=== PATIENT | female | born 1960 | race Caucasian/White ===

== ENCOUNTER 2017-01-17 15:08 | Emergency (ER) | payer BC, OTHER ==
[2017-01-17 15:32] VITALS: TEMP 97.8; BMI 33.6
--- NOTE | 2017-01-17 16:13 | PDOC ---
History of Present Illness <Paula Moody - Last Filed: 01/17/17 18:09> - General History Source: Patient Exam Limitations: No Limitations <Milana Rodriguez - Last Filed: 01/17/17 18:30> - General Chief Complaint: Syncope/Near Syncope Stated Complaint: SYNCOPE Time Seen by Provider: 01/17/17 15:45 - History of Present Illness Initial Comments: 01/17/17 16:15 Patient is a 56 year old female with significant medical hx of HTN who is presenting to the ED after multiple syncopal episodes since undergoing a tooth extraction procedure this morning. This morning the patient had an upper left sided molar tooth extracted and was put under conscious sedation. After the patient was taken home, she took a tylenol with codeine and went to sleep. When the patient woke up she went to drink some water and change the gauze in her mouth. She reports having a sudden onset of lightheadedness and dizziness, and passed out in her hallway, hitting her head. The patient woke up for a brief period and fainted a second time. When she awoke after her second episode, she was was surrounded by firemen. Patient states that the engineering scientist took her blood pressure, which was initially read systolic pressure in the 160s, but dropped to the 100s after the patient was sat upwards. The patient has used narcotics in the past for an orthopedic injury and denies having a syncopal reaction. Patient denies lower extremity pain, lower extremity swelling, chest pain, palpitations, shortness of breath, diaphoresis, weakness, seizure activity, incontinence, hx of taking blood thinners, or hx of blood clots. Patient endorses recent air travel to [place], [place] and [place]. PMD: Constantino Nieves MD Allergies: morphine (Fransisco,Paula) Past History <Paula Moody - Last Filed: 01/17/17 18:09> - Past Medical History HTN: Yes Thyroid Disease: Yes - Surgical History Abdominal Surgery: Yes (DIVERTICULITIS, COLON RESECTION) - Immunization History Td Vaccination: No TDAP Vaccination: No Immunization Up to Date: Yes - Psycho/Social/Smoking Cessation Hx Anxiety: No Suicidal Ideation: No Smoking Status: No Smoking History: Never smoked Have you smoked in the past 12 months: No Number of Cigarettes Smoked Daily: 0 Information on smoking cessation initiated: No Hx Alcohol Use: No Drug/Substance Use Hx: No Substance Use Type: Alcohol <Milana Rodriguez - Last Filed: 01/17/17 18:30> - Past Medical History Allergies/Adverse Reactions: Allergies Allergy/AdvReac Type Severity Reaction Status Date / Time morphine AdvReac Itching Verified 01/17/17 15:24 Home Medications: Ambulatory Orders Atenolol 100 mg PO DAILY 10/26/11 Levothyroxine [Synthroid -] 175 mcg PO DAILY 01/17/17 Losartan Potassium 100 mg PO DAILY 01/17/17 Comment:: 01/17/17 16:01 HTN (Milana Rodriguez) Cardiac Specific PMH - Complaint Specific PMHX Angina: No Cardiac Arrhythmia: No Cardiac Stent: No Myocardial Infarction: No Pacemaker: No Pulmonary Embolus: No <Milana Rodriguez - Last Filed: 01/17/17 18:30> Review of Systems <Paula Moody - Last Filed: 01/17/17 18:09> - Review of Systems Is the patient limited Bahamian proficient: No Constitutional: No: Chills, Diaphoresis HEENTM: Yes: Mouth Pain. No: Hearing Loss, Throat Pain, Throat Swelling Respiratory: No: Cough, Orthopnea, Shortness of Breath, SOB with Exertion Cardiac (ROS): No: Chest Pain, Edema, Irregular Heart Rate ABD/GI: No: Abdominal Distended Musculoskeletal: No: Back Pain Integumentary: Yes: Bruising, Other (hematoma right scalp forehead) Neurological: No: See HPI All Other Systems: Reviewed and Negative <Milana Rodriguez - Last Filed: 01/17/17 18:30> - Review of Systems Comments:: 01/17/17 16:26 CONSTITUTIONAL: Absent: fever, chills, diaphoresis, generalized weakness, malaise, loss of appetite HEENT: Absent: rhinorrhea, nasal congestion, throat pain, throat swelling, difficulty swallowing, mouth swelling, ear pain, eye pain, visual changes CARDIOVASCULAR: Present: syncope, lightheadedness Absent: chest pain, palpitations, irregular heart rate, peripheral edema RESPIRATORY: Absent: cough, shortness of breath, dyspnea with exertion, orthopnea, wheezing, stridor, hemoptysis GASTROINTESTINAL: Absent: abdominal pain, abdominal distension, nausea, vomiting, diarrhea, constipation, melena, hematochezia GENITOURINARY: Absent: dysuria, frequency, urgency, hesitancy, hematuria, flank pain, genital pain MUSCULOSKELETAL: Absent: myalgia, arthralgia, joint swelling SKIN: Absent: rash, itching, pallor HEMATOLOGIC/IMMUNOLOGIC: Absent: easy bleeding, easy bruising, lymphadenopathy, frequent infections ENDOCRINE: Absent: unexplained weight gain, unexplained weight loss, heat intolerance, cold intolerance NEUROLOGIC: Present: dizziness Absent: headache, focal weakness or paresthesia, unsteady gait, seizure, mental status changes, bladder or bowel incontinence. PSYCHIATRIC: Absent: anxiety, depression, suicidal or homicidal ideation, hallucinations (FransiscoPaula) *Physical Exam <FransiscoPaula - Last Filed: 01/17/17 18:09> - Physical Exam HEENT: positive: KAVITA, Normal ENT Inspection Neck: positive: Tender lateral. negative: Tender midline Respiratory/Chest: positive: Lungs Clear, Normal Breath Sounds. negative: Chest Tender Cardiovascular: positive: Regular Rhythm, Regular Rate Vascular Pulses: Dorsalis-Pedis (R): 2+, Doralis-Pedis (L): 2+ Gastrointestinal/Abdominal: positive: Normal Bowel Sounds. negative: Tender Integumentary: positive: Normal Color, Dry, Warm, Other (hematoma right forehead ) Neurologic: positive: content administrator II-XII NML intact, Fully Oriented, Alert, Motor Strength 5/5 <Milana Rodriguez - Last Filed: 01/17/17 18:30> - Vital Signs Last Vital Signs Temp Pulse Resp BP Pulse Ox 97.8 F 68 17 154/81 99 01/17/17 15:25 01/17/17 15:25 01/17/17 15:25 01/17/17 15:25 01/17/17 15:25 - Physical Exam Comments: 01/17/17 16:27 GENERAL: Obese. Awake and alert. No acute distress. HEENT: Normocephalic. Right forehead hematoma. PERRLA, EOMI. No conjunctival pallor. Sclera are non-icteric. Moist mucous membranes. Oropharynx is clear. NECK: Supple. Full ROM. No JVD. Carotid pulses 2+ and symmetric, without bruits. No thyromegaly. No lymphadenopathy. CARDIOVASCULAR: Regular rate and rhythm. No murmurs, rubs, or gallops. Distal pulses are 2+ and symmetric. PULMONARY: No evidence of respiratory distress. Lungs clear to auscultation bilaterally. No wheezing, rales or rhonchi. ABDOMINAL: Soft. Non-tender. Non-distended. No rebound or guarding. No organomegaly. Normoactive bowel sounds. MUSCULOSKELETAL: Paraspinal cervical tenderness but no midline bony tenderness. Normal range of motion at all joints. No CVA tenderness. EXTREMITIES: No cyanosis. No clubbing. No edema. No calf tenderness. SKIN: Warm and dry. Normal capillary refill. No rashes. No jaundice. NEUROLOGICAL: Alert, awake, appropriate. Cranial nerves 2-12 intact. 5/5 motor strength all four extremities. Normal speech. PSYCHIATRIC: Cooperative. Good eye contact. Appropriate mood and affect. (Paula Moody) Heart Score/ECG Review <Paula Moody - Last Filed: 01/17/17 18:09> - ECG Intrepretation Rhythm: Regular Rhythm <Milana Rodriguez - Last Filed: 01/17/17 18:30> - ECG Intrepretation Comment:: 01/17/17 16:04 rate 70 bpm, NSR, no st elevation or depression Pr 192 (Milana Rodriguez) ED Treatment Course - LABORATORY CBC & Chemistry Diagram: 01/17/17 16:36 01/17/17 16:36 <Paula Moody - Last Filed: 01/17/17 18:09> - LABORATORY CBC & Chemistry Diagram: 01/17/17 16:36 01/17/17 16:36 <Milana Rodriguez - Last Filed: 01/17/17 18:30> - ADDITIONAL ORDERS Additional order review: Laboratory Results 01/17/17 01/17/17 16:36 16:36 INR 1.05 D-Dimer 202 Sodium 140 Potassium 4.6 Chloride 104 Carbon Dioxide 27 Anion Gap 9 BUN 11 Creatinine 0.6 Creat Clearance w eGFR > 60 Random Glucose 124 H D Calcium 9.1 Total Bilirubin 1.1 H D AST 23 D ALT 37 D Alkaline Phosphatase 72 D Troponin I 0.02 Total Protein 7.4 Albumin 3.4 01/17/17 16:36 RBC 4.34 MCV 90.6 MCHC 33.9 RDW 12.7 D MPV 8.7 Neutrophils % 73.6 Lymphocytes % 14.4 D Monocytes % 8.7 Eosinophils % 2.5 Basophils % 0.8 - RADIOLOGY Radiology Studies Ordered: Category Date Time Status HEAD CT WITHOUT CONTRAST [CT] Stat CT Scan 01/17/17 17:07 Completed Radiograph Interpretation: 01/17/17 18:[address] Impression: No CT evidence of acute intracranial pathology. Reported By: Artie Mendoza MD (Paula Moody) - Medications Given in the ED: ED Medications Discontinued Medications Generic Name Dose Route Start Last Admin Trade Name Freq PRN Reason Stop Dose Admin Sodium Chloride 1,000 ml 01/17/17 16:17 01/17/17 16:29 Normal Saline - IV 01/17/17 16:18 1,000 ml ONCE ONE Administration Medical Decision Making <Paula Moody - Last Filed: 01/17/17 18:09> <Milana Rodriguez - Last Filed: 01/17/17 18:30> - Medical Decision Making 01/17/17 16:05 56 yo F with h/o HTN here s/p molar extraction this am, was given versed, fentanyl, and amoxicillin. dc on tylenol #3. at home went to bed, on awakening , went to bathroom to change guaze, and felt lightheaded , dizzy, with secondary LOC. awoke in hallway floor, had dialed phone so someone was talking to her in the phone. then she passed out again. awoke to EMS in hallway , on arrival was normotensive, but became hypotensive on sitting and standing. denies palpitations. no prior syncope. no leg swelling. no leg pain. no h;/o pe or dvt. on exam awake alert. small hematoma right forehead. nuerologically 5/5 DDgx: dysthymia, orthostatic, medication side effect. vagal. traumatic head injuryk. plan ct head, cxr ekg tele cbc lytes iv hydration reassess. herbie if workup negative will be able to dc home. (Milana Rodriguez) *DC/Admit/Observation/Transfer <Paula Moody - Last Filed: 01/17/17 18:09> - Discharge Dispostion Admit: No <Milana Rodriguez - Last Filed: 01/17/17 18:30> Diagnosis at time of Disposition: Syncope - Discharge Dispostion Disposition: HOME Condition at time of disposition: Good - Referrals Referrals: Constantino Nieves MD [Primary Care Provider] - - Patient Instructions Additional Instructions: drink plenty of fluids. follow up with your primary doctor. dr. Nieves. return for any chest pain. shortness of breath or any concerns. drink plenty of fluids - Attestations Scribe Attestion: 01/17/17 16:29 Documentation prepared by Paula Moody, acting as medical physics researcher for Milana Rodriguez MD. (Paula Moody)
[2017-01-17] MEDS ORDERED: SODIUM CHLORIDE 0.9% 1000 ML INFUS.BAG IV ONE (16:17)
[2017-01-17 17:10] LABS: BASOPHIL 0.8 % (0-2.0); EOSINOPHIL 2.5 % (0-4.5); MCH 30.7 pg (25.7-33.7); MCHC 33.9 g/dl (32.0-36.0); MEAN CELL VOLUME 90.6 fl (80-96); MEAN PLT VOLUME 8.7 fl (7.5-11.1); NEUTROPHILS 73.6 % (42.8-82.8); PLATELET COUNT 251 K/MM3 (134-434); RDW 12.7 % (11.6-15.6); WHITE BLOOD COUNT 8.1 K/mm3 (4.0-10.0)
[2017-01-17 17:29] LABS: INR 1.05 (0.82-1.09); PROTHROMBIN TIME (PATIENT) 11.6 SEC (9.98-11.88)
[2017-01-17 17:37] LABS: ALBUMIN 3.4 g/dl (3.4-5.0); ANION GAP 9 (8-16); BILIRUBIN,TOTAL 1.1 mg/dL (0.2-1.0); CALCIUM 9.1 mg/dL (8.5-10.1); CO2 27 mmol/L (21-32); CREATININE 0.6 mg/dL (0.55-1.02); GLUCOSE,RANDOM 124 mg/dL (74-106); SGOT/AST 23 U/L (15-37); SGPT/ALT 37 U/L (12-78); TOT PROT 7.4 g/dl (6.4-8.2)
[2017-01-17 17:40] LABS: ALK PHOS 72 U/L (45-117); TROPONIN I 0.02 ng/ml (0.00-0.05)
[2017-01-17 19:10] VITALS: BP 145/68; PULSE 72
--- NOTE | 2017-01-18 10:57 | EKG ---
Test Reason : Blood Pressure : / mmHG Vent. Rate : 070 BPM Atrial Rate : 070 BPM P-R Int : 192 ms QRS Dur : 088 ms QT Int : 448 ms P-R-T Axes : 047 -07 048 degrees QTc Int : 483 ms NORMAL SINUS RHYTHM MODERATE VOLTAGE CRITERIA FOR LVH, MAY BE NORMAL VARIANT PROLONGED QT ABNORMAL ECG WHEN COMPARED WITH ECG OF 26-OCT-2011 12:55, NO SIGNIFICANT CHANGE WAS FOUND Confirmed by DELMY LLANOS MD ([id number]) on 01/18/2017 10:56:30 AM Referred By: Confirmed By:DELMY LLANOS MD
== END 2017-01-17 19:09 | disposition home or self-care (01) ==
LOC: JER 15:08
DX: R55 Syncope and collapse (principal); I95.1 Orthostatic hypotension; K08.109 Complete loss of teeth, unspecified cause, unspecified class; I10 Essential (primary) hypertension; E03.9 Hypothyroidism, unspecified
CPT/HCPCS: 36415; 70450-TC; 80053; 84484; 85025; 85379; 85610; 93005; 93010; 99285-25

== ENCOUNTER 2017-06-10 10:00 | Day surgery (SDC) | payer BC, OTHER ==
[2017-06-07 16:23] VITALS: BMI 40.7
--- NOTE | 2017-06-10 15:37 | HP ---
Past Medical History - Primary Care Physician PCP:: Alonzo Grissom - Admission Chief Complaint: postmenopausal vaginal bleeding, fibroid uterus History of Present Illness: 57 yo f with hx of PMB admitted for hysteroscopy D&C , procedure rba discussed History Source: Patient Limitations to Obtaining History: No Limitations - Past Medical History Cardiovascular: Yes: HTN, Hyperlipdemia Endocrine: Yes: Hypothyroidism - Past Surgical History Hx Myomectomy: No Hx Transabdominal Cerclage: No - Smoking History Smoking history: Never smoked Have you smoked in the past 12 months: No Aproximately how many cigarettes per day: 0 - Alcohol/Substance Use Hx Alcohol Use: No Home Medications - Allergies Allergies/Adverse Reactions: Allergies Allergy/AdvReac Type Severity Reaction Status Date / Time morphine AdvReac Itching Verified 06/07/17 16:05 NUTS Allergy Uncoded 06/10/17 13:25 - Home Medications Home Medications: Ambulatory Orders Atenolol 100 mg PO DAILY 10/26/11 Levothyroxine [Synthroid -] 175 mcg PO DAILY 01/17/17 Losartan Potassium 100 mg PO DAILY 01/17/17 Aspirin [Ecotrin] 81 mg PO DAILY 06/07/17 Review of Systems - Review of Systems Constitutional: reports: No Symptoms, Malaise Eyes: reports: No Symptoms HENT: reports: No Symptoms Neck: reports: No Symptoms Cardiovascular: reports: No Symptoms Respiratory: reports: No Symptoms Gastrointestinal: reports: No Symptoms Genitourinary: reports: Vaginal Bleeding Breasts: reports: No Symptoms Reported Musculoskeletal: reports: No Symptoms Integumentary: reports: No Symptoms Neurological: reports: No Symptoms Endocrine: reports: No Symptoms Hematology/Lymphatic: reports: No Symptoms Psychiatric: reports: No Symptoms 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 No: Severe Distress Eyes: Yes: WNL, Conjunctiva Clear, EOM Intact HENT: Yes: WNL, Atraumatic, Normocephalic Neck: Yes: WNL, Supple, Trachea Midline Cardiovascular: Yes: WNL, Regular Rate and Rhythm Respiratory: Yes: WNL, Regular, CTA Bilaterally Gastrointestinal: Yes: WNL ...Rectal Exam: Yes: WNL Renal/: Yes: WNL Vaginal Exam: Yes: Normal, Bleeding Cervix: Yes: Bleeding Uterus: Yes: Enlarged Adnexa: Not Palpable: Left, Right Breast(s): Yes: WNL Musculoskeletal: Yes: WNL Extremities: Yes: WNL Integumentary: Yes: WNL Neurological: Yes: WNL, Alert, Oriented ...Motor Strength: WNL Psychiatric: Yes: WNL, Alert, Oriented Problem List - Problem (1) Post-menopausal bleeding Code(s): N95.0 - POSTMENOPAUSAL BLEEDING (2) Leiomyoma of body of uterus Code(s): D25.9 - LEIOMYOMA OF UTERUS, UNSPECIFIED Qualifiers: Uterine leiomyoma location: submucous Qualified Code(s): D25.0 - Submucous leiomyoma of uterus Assessment/Plan hysteroscopy, D&C. rba discussed
[2017-06-10] MEDS ORDERED: IBUPROFEN 600 MG TABLET (FP) PO PRN (15:44)
[2017-06-10] MEDS ORDERED: ONDANSETRON 4 MG/2 ML VIAL IVPB PRN (15:44)
[2017-06-10] MEDS ORDERED: IBUPROFEN 800 MG/8 ML IJ IVPB PRN (15:44)
[2017-06-10] MEDS ORDERED: ELECTROLYTE-148 SOLN 1,000 ML IV SCH (15:45)
[2017-06-10] MEDS ORDERED: oxyCODONE HCL 5 MG TABLET PO PRN (15:48)
[2017-06-10] MEDS ORDERED: ACETAMINOPHEN 1000 MG/100 ML VIAL (NON FORMULARY) IVPB ONE (15:49)
[2017-06-10] MEDS ORDERED: LACTATED RINGERS SOLUTION 1,000 ML IV SCH (16:00)
[2017-06-10 16:57] VITALS: TEMP 98
[2017-06-10 18:23] VITALS: BP 132/79; PULSE 60
--- NOTE | 2017-06-12 10:19 | PATH ---
Surgical Pathology Report Patient Name: CYNDEE ALVAREZ [facility]. Rec. #: [id number] /Age/Gender: 1960 (Age: 57) / F Account: [id number] Location: [facility] Taken: 06/10/2017 Received: 06/11/2017 Reported: 06/12/2017 Physicians: Alonzo Grissom M.D. Specimen(s) Received A: ENDOCERVICAL CURETTINGS B: ENDOMETRIAL CURETTINGS C: POLYP Clinical History Postmenopausal bleeding Final Diagnosis A. ENDOCERVIX, CURETTING: BENIGN ENDOCERVICAL TISSUE AND SCANT BENIGN SQUAMOUS EPITHELIUM. B. ENDOMETRIUM, CURETTING: ENDOMETRIAL TISSUE WITH STROMAL AND GLANDULAR BREAKDOWN. C. ENDOMETRIUM, POLYPECTOMY: BENIGN ENDOMETRIAL POLYP. Electronically Signed Curtis Medellin M.D. Gross Description A. Received in formalin labelled "endocervical curetting" is approximately 0.3 cm greatest dimension aggregate of mucinous material. Embedding will be attempted in a single cassette. B. Received in formalin labelled "endometrial curetting" is a 2.5 x 2 x 0.3 cm aggregate of hemorrhagic material and main tissue fragments. Totally submitted in one cassette. C. Received in formalin labelled "polyp" is a 0.6 x 0.3 x 0.2 cm portion of main tissue. Totally submitted one cassette. [facility]/06/11/2017 [facility]/06/11/2017
== END 2017-06-10 18:30 | disposition home or self-care (01) ==
LOC: JASU-SURG 10:00
PROVIDERS: ATTEND Obstetrics & Gynecology
PROC: 0UDB7ZX Extraction of Endometrium, Via Natural or Artificial Opening, Diagnostic (ICD-10-PCS; 2017-06-10)
PROC: 0UB98ZX Excision of Uterus, Via Natural or Artificial Opening Endoscopic, Diagnostic (ICD-10-PCS; principal; 2017-06-10 15:00)
DX: N95.0 Postmenopausal bleeding (principal)
CPT/HCPCS: 88305-TC; 94760